=== PATIENT | male | born 1955 | race African-American/Black ===

== ENCOUNTER 2019-08-20 14:40 | Emergency (ER) | payer MEDICAID ==
[~2019-08-20] VITALS: Ht 175.3 cm; Wt 83.0 kg
[2019-08-20 15:24] VITALS: BP 139/86
== END 2019-08-20 16:30 | disposition left against medical advice (07) ==
LOC: ER 16:24
DX: M79.602 Pain in left arm (principal); R07.0 Pain in throat; Z53.21 Procedure and treatment not carried out due to patient leaving prior to being seen by health care provider

== ENCOUNTER 2025-04-09 11:03 | Emergency (ER) | payer MEDICARE, MEDICAID ==
[~2025-04-09] VITALS: Ht 175.3 cm; Wt 73.0 kg
[2025-04-09 11:09] VITALS: O2SAT 98
[2025-04-09 11:43] VITALS: TEMP 36.7; O2SAT 99
[2025-04-09 11:44] VITALS: BP 102/57; PULSE 81; RESP 15
[2025-04-09] MEDS: IBUPROFEN 600MG TABLET PO ONE (11:44)
[2025-04-09] MEDS ORDERED: IBUP-2029 MT (12:41)
== END 2025-04-09 13:33 | disposition home or self-care (01) ==
LOC: ER 11:03
DX: M25.531 Pain in right wrist (principal); J44.9 Chronic obstructive pulmonary disease, unspecified; M19.90 Unspecified osteoarthritis, unspecified site; F10.90 Alcohol use, unspecified, uncomplicated; W01.0XXA Fall on same level from slipping, tripping and stumbling without subsequent striking against object, initial encounter; Y93.01 Activity, walking, marching and hiking; Y92.89 Other specified places as the place of occurrence of the external cause; Y99.8 Other external cause status; Y90.9 Presence of alcohol in blood, level not specified
CPT/HCPCS: 99284; 73090; 73110; 73120; A6449